=== PATIENT | male | born 1960 | race African-American/Black ===

== ENCOUNTER 2017-01-08 01:48 | Emergency (ER) | payer MEDICARE, MEDICAID ==
[~2017-01-08] VITALS: Ht 172.7 cm; Wt 72.0 kg
[2017-01-08 01:51] VITALS: BP 154/90
== END 2017-01-08 03:06 | disposition home or self-care (01) ==
LOC: ER 01:50
DX: T82.838A Hemorrhage due to vascular prosthetic devices, implants and grafts, initial encounter (principal); I12.0 Hypertensive chronic kidney disease with stage 5 chronic kidney disease or end stage renal disease; N18.6 End stage renal disease; F17.210 Nicotine dependence, cigarettes, uncomplicated; Z99.2 Dependence on renal dialysis; Z20.6 Contact with and (suspected) exposure to human immunodeficiency virus [HIV]; Y84.1 Kidney dialysis as the cause of abnormal reaction of the patient, or of later complication, without mention of misadventure at the time of the procedure; Y92.018 Other place in single-family (private) house as the place of occurrence of the external cause
CPT/HCPCS: 99283

== ENCOUNTER 2023-03-04 15:31 | Emergency (ER) | payer BC, MEDICAID ==
[~2023-03-04] VITALS: Ht 175.3 cm; Wt 75.0 kg
[2023-03-04 15:38] VITALS: TEMP 98.2; O2SAT 95
[2023-03-04] MEDS ORDERED: T3 PO ×2 (18:11→19:12)
[2023-03-04 18:30] VITALS: BP 183/79; PULSE 98; RESP 18
[2023-03-04] MEDS ORDERED: HYDROCODONE/ACETAMINOPHEN 5/325MG TABLET PO ONE (18:30)
== END 2023-03-04 20:09 | disposition home or self-care (01) ==
LOC: ER 15:31
DX: M79.672 Pain in left foot (principal); I11.0 Hypertensive heart disease with heart failure; I50.9 Heart failure, unspecified; Z99.2 Dependence on renal dialysis; Z86.73 Personal history of transient ischemic attack (TIA), and cerebral infarction without residual deficits
CPT/HCPCS: 73610; 73630; 99284

== ENCOUNTER 2025-07-20 03:49 | Inpatient (IN) | payer MEDICARE, MEDICAID ==
[2025-07-20] VITALS (29 sets, daily range): BP systolic 110–183; BP diastolic 46–141; PULSE 64–114; RESP 13–66; TEMP 36.2–37; O2SAT 91–100
[~2025-07-20] VITALS: Ht 175.3 cm; Wt 59.0 kg
[~2025-07-20 03:49] MED LIST: T3 PO
[2025-07-20 04:13] LABS: BG BASE EXCESS -8.5 mmol/L (-2.0-3.0); BG CARBOXYHEMOGLOBIN 1.8 % (0.5-1.5); BG DEOXYHEMOGLOBIN 7.1 % (0.0-5.0); BG FRACTION INSPIRED OXYGEN 50; BG HCO3 ACT 23.2 mmol/L (21.0-28.0); BG METHEMOGLOBIN 0.1 % (0.5-1.5); BG OXYGEN SATURATION 92.8 % (94.0-98.0); BG OXYHEMOGLOBIN 91.0 % (94.0-98.0); BG PCO2 81.6 mmHg (35.0-48.0); BG PH 7.072 (7.350-7.450); BG PO2 86.9 mmHg (83.0-108.0); BG SAMPLE SITE LEFT BRACHIAL; BG TOTAL HEMOGLOBIN 13.5 g/dL (13.5-17.5); BG VENT MODE MASK - BIPAP; BG VENT RATE 22.0 set
[2025-07-20 04:22] LABS: BASOPHILS % 0.6 % (0.0-2.0); EOSINOPHILS % 9.7 % (0.0-5.0); HEMATOCRIT. 37.6 % (42.0-52.0); HEMOGLOBIN. 11.8 g/dL (14.0-18.0); LYMPHOCYTES % 20.1 % (20.0-50.0); MEAN PLATELET VOLUME 7.5 fl (7.4-10.4); MONOCYTES % 12.3 % (2.0-8.0); NEUTROPHILS % 57.3 % (40.0-76.0); PLATELET 213 x1000/uL (130-400); RED BLOOD CELL COUNT 3.98 mill/uL (4.7-6.1); RED CELL DISTRIBUTION WIDTH 16.5 % (11.6-14.6)
[2025-07-20 04:37] LABS: CREATININE 3.6 mg/dL (0.6-1.3); UREA NITROGEN BLOOD 28 mg/dL (9-23)
[2025-07-20 04:39] LABS: ASPARTATE AMINOTRANSFERASE 29 IU/L (<34); BILIRUBIN DIRECT 0.1 mg/dL (<=3.0); BILIRUBIN TOTAL 0.5 mg/dL (0.1-1.0); PROTEIN TOTAL 7.8 g/dL (6.0-8.3)
[2025-07-20 04:45] LABS: TROPONIN I HIGH SENSITIVITY 65 ng/L (3.0-53)
[2025-07-20 05:17] LABS: INR 1.0
[2025-07-20] MEDS: SODIUM CHLORIDE 0.9% 100 ML IV ONE (06:06)
[2025-07-20] MEDS: PIPERACILLIN/TAZO 3.375G/50ML 50 ML IV NR (06:23)
[2025-07-20] MEDS: VANCOMYCIN 1.75GM PMX (XELLIA) 350 ML IV NR (06:36)
[2025-07-20 07:13] LABS: INFLUENZA TYPE A Presumptive Negative (Pres. Neg.)
[2025-07-20 07:14] LABS: INFLUENZA TYPE B Presumptive Negative (Pres. Neg.); RESPIRATORY SYNCYTIAL VIRUS Not Detected (Not Detectd)
[2025-07-20] MEDS ORDERED: DOCUSATE SODIUM 100MG CAPSULE PO PRN (08:00)
[2025-07-20] MEDS ORDERED: IPRATROPIUM/ALBUTEROL 0.5-3(2.5)MG/3ML NEB HHN PRN (08:00)
[2025-07-20] MEDS ORDERED: ACETAMINOPHEN 325MG TABLET PO PRN ×2 (08:00)
[2025-07-20] MEDS ORDERED: ONDANSETRON HCL 4MG/2ML INJ IV PRN (08:00)
[2025-07-20] MEDS: IPRATROPIUM/ALBUTEROL 0.5-3(2.5)MG/3ML NEB HHN SCH (08:53)
[2025-07-20] MEDS: ASPIRIN 81MG TABLET PO SCH (09:58)
[2025-07-20] MEDS: FAMOTIDINE 20MG/2ML VIAL IV SCH (09:58)
[2025-07-20] MEDS: ENOXAPARIN 30MG/0.3ML SYR SUBCUT SCH (10:00)
[2025-07-20] MEDS: GUAIFENESIN 200MG/10ML SUGAR FREE UDC PO PRN (15:57)
[2025-07-20] MEDS ORDERED: ALBUTEROL (0.083%) 2.5MG/3ML NEB HHN NR (18:30)
[2025-07-20] MEDS ORDERED: AMLODIPINE 10MG TABLET PO SCH (18:30)
[2025-07-20] MEDS: BUDESONIDE 0.5MG/2ML NEB HHN SCH (20:57)
[2025-07-20] MEDS ORDERED: VANCOMYCIN 500MG PREMIX 100 ML IV SCH (21:00)
[2025-07-20] MEDS: CALCIUM GLUCONATE 100MG/ML 10ML VIAL IV NR (21:09)
[2025-07-20] MEDS: PIPERACILLIN/TAZO 3.375G/50ML 50 ML IV SCH (21:09)
[2025-07-20] MEDS: FUROSEMIDE 40MG/4ML VIAL IV NR (21:10)
[2025-07-20] MEDS: ATORVASTATIN CALCIUM 40MG TABLET PO SCH (21:10)
[2025-07-20] MEDS: SODIUM BICARBONATE 8.4% 50MEQ/50ML SYR IV NR (21:11)
[2025-07-20] MEDS: CARVEDILOL 6.25 MG TABLET PO SCH (21:19)
[2025-07-20] MEDS: NIFEDIPINE XL 60MG TAB PO SCH (21:20)
[2025-07-20 22:31] LABS: TROPONIN I HIGH SENSITIVITY 57 ng/L (3.0-53)
[2025-07-20 22:36] LABS: CREATINE KINASE MB FRACTION 3.3 ng/mL (0.5-3.6)
[2025-07-20] MEDS: CLONIDINE 0.1MG TABLET PO PRN (23:19)
[2025-07-21] VITALS (22 sets, daily range): BP systolic 97–183; BP diastolic 54–91; PULSE 57–89; RESP 0–28; TEMP 36.3–36.7; O2SAT 95–100
[2025-07-21 00:04] LABS: PHOSPHORUS 2.9 mg/dL (2.5-4.9)
[2025-07-21 06:10] LABS: CREATINE KINASE MB FRACTION 2.8 ng/mL (0.5-3.6); CREATININE 3.1 mg/dL (0.6-1.3); TRIGLYCERIDE 66.0 mg/dL (0-150); UREA NITROGEN BLOOD 21.0 mg/dL (9-23)
[2025-07-21 06:11] LABS: LDL CHOLESTEROL 92.0 mg/dL (5-100)
[2025-07-21 06:14] LABS: BASOPHILS % 0.4 % (0.0-2.0); EOSINOPHILS % 12.6 % (0.0-5.0); HEMATOCRIT. 35.7 % (42.0-52.0); HEMOGLOBIN. 11.4 g/dL (14.0-18.0); LYMPHOCYTES % 12.8 % (20.0-50.0); MEAN PLATELET VOLUME 7.6 fl (7.4-10.4); MONOCYTES % 11.3 % (2.0-8.0); NEUTROPHILS % 62.9 % (40.0-76.0); PLATELET 171 x1000/uL (130-400); RED BLOOD CELL COUNT 3.84 mill/uL (4.7-6.1); RED CELL DISTRIBUTION WIDTH 16.7 % (11.6-14.6)
[2025-07-21 06:15] LABS: T4 FREE 1.31 ng/dL (0.89-1.76)
[2025-07-21 06:21] LABS: TROPONIN I HIGH SENSITIVITY 65 ng/L (3.0-53)
[2025-07-21] MEDS ORDERED: ASPI-1406 PO (13:45)
[2025-07-21] MEDS ORDERED: CHOL400D7 PO (13:45)
[2025-07-21] MEDS ORDERED: DOLU1TAB PO (13:45)
[2025-07-21] MEDS ORDERED: FURO80TA3 PO (13:45)
[2025-07-21] MEDS: VANCOMYCIN 500MG PREMIX 100 ML IV SCH (17:20)
[2025-07-22] VITALS (16 sets, daily range): BP systolic 112–174; BP diastolic 42–73; PULSE 64–86; RESP 13–29; TEMP 36.3–36.8; O2SAT 94–100
[2025-07-22 06:17] LABS: HIV SCREEN 4G Preliminary Reactive (Non Reactive)
[2025-07-22 08:11] LABS: HIV 1 ABS Reactive (Non Reactive); HIV 2 ABS Non Reactive (Non Reactive)
[2025-07-22 08:11] LABS: % CD 3 POS. LYMPHOCYTES 64.3 % (57.5-86.2); % CD 4 POS. LYMPHOCYTES 45.9 % (30.8-58.5); % CD 8 POS. LYMPH 17.4 % (12.0-35.5); ABSOLUTE BASOPHILS 0.0 x10E3/uL (0.0-0.2); ABSOLUTE CD 3 514 /uL (622-2402); ABSOLUTE CD 4 HELPER 367 /uL (359-1519); ABSOLUTE CD 8 SUPPRESSOR 139 /uL (109-897); ABSOLUTE EOSINOPHILS 0.8 x10E3/uL (0.0-0.4); ABSOLUTE LYMPHOCYTES 0.8 x10E3/uL (0.7-3.1); ABSOLUTE MONOCYTES 0.7 x10E3/uL (0.1-0.9); ABSOLUTE NEUTROPHILS 4.0 x10E3/uL (1.4-7.0); BASOPHILS 1 % (Not Estab.); EOSINOPHILS 12 % (Not Estab.); IMMATURE GRANULOCYTES 0 % (Not Estab.); IMMATURE GRANULOCYTES ABSOLUTE 0.0 x10E3/uL (0.0-0.1); LYMPHOCYTES 13 % (Not Estab.); MEAN CORPUSCULAR HGB CONC. 31.4 g/dL (31.5-35.7); MONOCYTES 11 % (Not Estab.); NEUTROPHILS 63 % (Not Estab.); PLATELETS 173 x10E3/uL (150-450); RBC 3.73 x10E6/uL (4.14-5.80); RED CELL DISTRIBUTION WIDTH 14.0 % (11.6-15.4); WBC 6.4 x10E3/uL (3.4-10.8)
[2025-07-22 16:08] LABS: BG BASE EXCESS -0.8 mmol/L (-2.0-3.0); BG CARBOXYHEMOGLOBIN 0.7 % (0.5-1.5); BG DEOXYHEMOGLOBIN 6.0 % (0.0-5.0); BG FRACTION INSPIRED OXYGEN 21; BG HCO3 ACT 24.6 mmol/L (21.0-28.0); BG METHEMOGLOBIN 0.3 % (0.5-1.5); BG OXYGEN SATURATION 93.9 % (94.0-98.0); BG OXYHEMOGLOBIN 93.0 % (94.0-98.0); BG PCO2 43.5 mmHg (35.0-48.0); BG PH 7.370 (7.350-7.450); BG PO2 67.0 mmHg (83.0-108.0); BG SAMPLE SITE RIGHT RADIAL; BG TOTAL HEMOGLOBIN 12.5 g/dL (13.5-17.5); BG VENT MODE ROOM AIR
[2025-07-22 16:19] LABS: BASOPHILS % 1.0 % (0.0-2.0); EOSINOPHILS % 13.9 % (0.0-5.0); HEMATOCRIT. 35.9 % (42.0-52.0); HEMOGLOBIN. 11.4 g/dL (14.0-18.0); LYMPHOCYTES % 15.8 % (20.0-50.0); MEAN PLATELET VOLUME 7.4 fl (7.4-10.4); MONOCYTES % 12.9 % (2.0-8.0); NEUTROPHILS % 56.4 % (40.0-76.0); PLATELET 205 x1000/uL (130-400); RED BLOOD CELL COUNT 3.80 mill/uL (4.7-6.1); RED CELL DISTRIBUTION WIDTH 16.9 % (11.6-14.6)
[2025-07-22 16:32] LABS: CREATININE 3.4 mg/dL (0.6-1.3); UREA NITROGEN BLOOD 17.0 mg/dL (9-23)
[2025-07-22] MEDS: MUPIROCIN 2% OINT 22GM NS SCH (22:05)
[2025-07-23] VITALS (14 sets, daily range): BP systolic 141–168; BP diastolic 51–100; PULSE 52–110; RESP 16–20; TEMP 36.5–36.7; O2SAT 98–99
[2025-07-23 08:09] LABS: HEMATOCRIT. 36.2 % (42.0-52.0); HEMOGLOBIN. 11.5 g/dL (14.0-18.0); MEAN PLATELET VOLUME 7.3 fl (7.4-10.4); PLATELET 198 x1000/uL (130-400); RED BLOOD CELL COUNT 3.83 mill/uL (4.7-6.1); RED CELL DISTRIBUTION WIDTH 16.5 % (11.6-14.6)
[2025-07-23 08:21] LABS: CREATININE 3.7 mg/dL (0.6-1.3); UREA NITROGEN BLOOD 21.0 mg/dL (9-23)
[2025-07-23] MEDS ORDERED: LIP40 PO (09:37)
[2025-07-23] MEDS ORDERED: NIFE-32 PO (09:37)
[2025-07-23] MEDS ORDERED: COR6 PO (09:37)
[2025-07-23] MEDS ORDERED: DOXY150T8 MT (09:37)
[2025-07-23 16:59] LABS: EOSINOPHILS % MANUAL 13.0 % (0.0-5.0); LYMPHOCYTES % MANUAL 14.0 % (20.0-50.0); MONOCYTES % MANUAL 4.0 % (2.0-8.0); NEUTROPHILS % MANUAL 69.0 % (45.0-75.0); PLATELET ESTIMATE NORMAL
[2025-07-23] MEDS ORDERED: VANCOMYCIN 750MG PREMIX 150 ML IV SCH (18:00)
== END 2025-07-23 15:55 | disposition home health service (06) | DRG 871 ==
LOC: ER 03:49 → EDBD 03:49 → EDUNIT# 03:49 → 5EST 05:45 → EDBEDREQ 06:06 → EDBEDREQTM 06:06 → ENRESERV 06:26 → 6WST 07-22 22:54
PROVIDERS: ADMIT Hospitalist; ATTEND Hospitalist
PROC: 5A09357 Assistance with Respiratory Ventilation, Less than 24 Consecutive Hours, Continuous Positive Airway Pressure (ICD-10-PCS; principal; 2025-07-20)
PROC: 5A1D70Z Performance of Urinary Filtration, Intermittent, Less than 6 Hours Per Day (ICD-10-PCS; 2025-07-20)
PROC: 5A09357 Assistance with Respiratory Ventilation, Less than 24 Consecutive Hours, Continuous Positive Airway Pressure (ICD-10-PCS; 2025-07-21)
PROC: 5A1D70Z Performance of Urinary Filtration, Intermittent, Less than 6 Hours Per Day (ICD-10-PCS; 2025-07-21)
PROC: 5A09357 Assistance with Respiratory Ventilation, Less than 24 Consecutive Hours, Continuous Positive Airway Pressure (ICD-10-PCS; 2025-07-22)
PROC: 5A1D70Z Performance of Urinary Filtration, Intermittent, Less than 6 Hours Per Day (ICD-10-PCS; 2025-07-23)
DX: A41.9 Sepsis, unspecified organism (principal); G93.41 Metabolic encephalopathy; J18.9 Pneumonia, unspecified organism; I50.43 Acute on chronic combined systolic (congestive) and diastolic (congestive) heart failure; J96.01 Acute respiratory failure with hypoxia; J96.02 Acute respiratory failure with hypercapnia; I21.A1 Myocardial infarction type 2; N18.6 End stage renal disease; I13.2 Hypertensive heart and chronic kidney disease with heart failure and with stage 5 chronic kidney disease, or end stage renal disease; I27.20 Pulmonary hypertension, unspecified; J44.0 Chronic obstructive pulmonary disease with (acute) lower respiratory infection; Z99.2 Dependence on renal dialysis; D63.1 Anemia in chronic kidney disease; E87.4 Mixed disorder of acid-base balance; J44.1 Chronic obstructive pulmonary disease with (acute) exacerbation; E87.20 Acidosis, unspecified; D72.10 Eosinophilia, unspecified; I16.0 Hypertensive urgency; E87.5 Hyperkalemia; I25.10 Atherosclerotic heart disease of native coronary artery without angina pectoris; E78.5 Hyperlipidemia, unspecified; Z20.822 Contact with and (suspected) exposure to COVID-19; F17.210 Nicotine dependence, cigarettes, uncomplicated; Z82.49 Family history of ischemic heart disease and other diseases of the circulatory system; Z86.73 Personal history of transient ischemic attack (TIA), and cerebral infarction without residual deficits; K21.9 Gastro-esophageal reflux disease without esophagitis
CPT/HCPCS: 36415; 36600; 71045; 80048; 80061; 80076; 80202; 80320; 82375; 82550; 82553; 82728; 82805; 83540; 83550; 83605; 83735; 83880; 84100; 84132; 84145; 84439; 84443; 84484; 85025; 86359; 86360; 86701; 86702; 86850; 86900; 87389; 87420; 87426; 87804; 90935; 93005; 93306; 93970; 94003; 94070; 94640; 94660; 94664; 94760; 97166; 99291; A4606; J0612; J1308; J1650; J1938; J2543; J3373; J3490; J7626; G0480